=== PATIENT | male | born 1980 | race Caucasian/White ===

== ENCOUNTER 2022-02-17 21:00 | Inpatient (IN) | payer OTHER ==
[2022-02-17] MEDS ORDERED: SODIUM CHLORIDE 0.9% 1,000 ML IV STA (21:14)
[2022-02-17] MEDS ORDERED: DILTIAZEM DRIP BOLUS FROM BAG 1 MG SOLN IV ONE (21:14)
[2022-02-17 21:35] LABS: ALT 32 U/L (4-49); AST 26 U/L (17-59); African American GFR (CKD) >90 (>60 ml/min/1.73 sqM); Albumin 4.5 g/dL (3.5-5.0); Alkaline Phosphatase 76 U/L (38-126); Anion Gap 9 mmol/L; Blood Urea Nitrogen 14 mg/dL (9-20); Calcium 9.3 mg/dL (8.4-10.2); Carbon Dioxide 22 mmol/L (22-30); Chloride 106 mmol/L (98-107); Glucose 175 mg/dL (74-99); Magnesium 1.9 mg/dL (1.6-2.3); Non-African American GFR(CKD) >90 (>60 ml/min/1.73 sqM); Potassium 3.7 mmol/L (3.5-5.1); Sodium 137 mmol/L (137-145); Total Bilirubin 0.4 mg/dL (0.2-1.3); Total Protein 7.5 g/dL (6.3-8.2)
[2022-02-17] MEDS: DILTIAZEM 125 MG in SODIUM CHLORIDE 0.9% 100 ML IV SCH (21:38)
--- NOTE | 2022-02-17 21:38 | XR ---
EXAMINATION TYPE: XR chest 2V DATE OF EXAM: 02/17/2022 9:29 PM COMPARISON: None TECHNIQUE: XR chest 2V Frontal and lateral views of the chest. CLINICAL INDICATION:Male, 42 years old with history of dysrhythmia; FINDINGS: Lungs/Pleura: There is no evidence of pleural effusion, focal consolidation, or pneumothorax. Pulmonary vascularity: Unremarkable. Heart/mediastinum: Cardiomediastinal silhouette is unremarkable. Musculoskeletal: No acute osseous pathology. IMPRESSION: No acute cardiopulmonary disease/process.
[2022-02-17 21:44] LABS: INR 0.9 (<1.2); Partial Thromboplastin Time 24.8 sec (22.0-30.0); Prothrombin Time 10.2 sec (9.0-12.0)
--- NOTE | 2022-02-17 21:52 | ED ---
General Adult HPI - General Chief complaint: Arrhythmia/Palpitations Stated complaint: Afib Time Seen by Provider: 02/17/22 21:02 Source: patient, RN notes reviewed, old records reviewed Mode of arrival: ambulatory Limitations: no limitations - History of Present Illness Initial comments: 42-year-old male presenting with palpitations. Patient was transported by paramedics found to be in A. fib with RVR. He has remote history of atrial fibrillation and had been medicated but has not required medication approximately 10 years. He reports chest discomfort without chest pain. No vomiting or diarrhea.. No illegal drugs. He states he has been eating and drinking well. No fever. No dyspnea. - Related Data Home Medications Medication Instructions Recorded Confirmed No Known Home Medications 02/17/22 02/17/22 Allergies Allergy/AdvReac Type Severity Reaction Status Date / Time No Known Allergies Allergy Verified 02/17/22 22:09 Review of Systems ROS Statement: Those systems with pertinent positive or pertinent negative responses have been documented in the HPI. ROS Other: All systems not noted in ROS Statement are negative. Past Medical History Past Medical History: Atrial Fibrillation History of Any Multi-Drug Resistant Organisms: None Reported Past Surgical History: No Surgical Hx Reported Past Psychological History: No Psychological Hx Reported Smoking Status: Never smoker Past Alcohol Use History: Occasional Past Drug Use History: None Reported General Exam Limitations: no limitations General appearance: alert, in no apparent distress Head exam: Present: atraumatic, normocephalic Eye exam: Present: normal appearance, PERRL ENT exam: Present: normal exam Neck exam: Present: normal inspection. Absent: tenderness, meningismus Respiratory exam: Present: normal lung sounds bilaterally. Absent: respiratory distress, wheezes Cardiovascular Exam: Present: tachycardia, irregular rhythm GI/Abdominal exam: Present: soft. Absent: distended, tenderness, guarding Extremities exam: Present: normal inspection, normal capillary refill. Absent: pedal edema Neurological exam: Present: alert, oriented X3, CN II-XII intact. Absent: motor sensory deficit Psychiatric exam: Present: normal affect, normal mood Skin exam: Present: warm, dry, intact. Absent: cyanosis, diaphoretic Course Vital Signs 02/17/22 02/17/22 02/17/22 21:06 21:12 21:36 Temperature 98.2 F Pulse Rate 177 H 165 H 141 H Pulse Rate [ 146 H [employer]her Plant [employer] ] Respiratory 18 16 16 Rate Blood Pressure 135/83 121/90 O2 Sat by Pulse 96 98 95 Oximetry 02/17/22 22:10 Temperature Pulse Rate 137 H Pulse Rate [ [employer] ] Respiratory 16 Rate Blood Pressure 117/84 O2 Sat by Pulse 95 Oximetry EKG Findings - EKG Comments: EKG Findings:: EKG: Ventricular defibrillation with RVR rate of 171, QRS duration 87, QTC 344, no ST segment elevation. Medical Decision Making - Medical Decision Making 42-year-old male with remote history of atrial fibrillation presenting in nature fibrillation with RVR. Rapid heart rate up to 190. He has no central chest pain. Laboratory studies are obtained which are unremarkable. Chest x-ray is negative for acute cardiopulmonary 5 days. Patient started on Cardizem and does have a down trending heart rate in the emergency department. He will be admitted for rate control. Cardiology has been placed on consult. I did discuss case with Nino arce for [facility] - Lab Data Result diagrams: 02/17/22 21:47 02/17/22 21:16 Lab Results 02/17/22 02/17/22 02/17/22 Range/Units 21:16 21:16 21:16 WBC (3.8-10.6) k/uL RBC (4.30-5.90) m/uL Hgb (13.0-17.5) gm/dL Hct (39.0-53.0) % MCV (80.0-100.0) fL MCH (25.0-35.0) pg MCHC (31.0-37.0) g/dL RDW (11.5-15.5) % Plt Count (150-450) k/uL MPV Neutrophils % % Lymphocytes % % Monocytes % % Eosinophils % % Basophils % % Neutrophils # (1.3-7.7) k/uL Lymphocytes # (1.0-4.8) k/uL Monocytes # (0-1.0) k/uL Eosinophils # (0-0.7) k/uL Basophils # (0-0.2) k/uL PT 10.2 (9.0-12.0) sec INR 0.9 (<1.2) APTT 24.8 (22.0-30.0) sec Sodium 137 (137-145) mmol/L Potassium 3.7 (3.5-5.1) mmol/L Chloride 106 (98-107) mmol/L Carbon Dioxide 22 (22-30) mmol/L Anion Gap 9 mmol/L BUN 14 (9-20) mg/dL Creatinine 0.96 (0.66-1.25) mg/dL Est GFR (CKD-EPI)AfAm >90 (>60 ml/min/1.73 sqM) Est GFR (CKD-EPI)NonAf >90 (>60 ml/min/1.73 sqM) Glucose 175 H (74-99) mg/dL Calcium 9.3 (8.4-10.2) mg/dL Magnesium 1.9 (1.6-2.3) mg/dL Total Bilirubin 0.4 (0.2-1.3) mg/dL AST 26 (17-59) U/L ALT 32 (4-49) U/L Alkaline Phosphatase 76 (38-126) U/L Troponin I <0.012 (0.000-0.034) ng/mL Total Protein 7.5 (6.3-8.2) g/dL Albumin 4.5 (3.5-5.0) g/dL TSH 2.760 (0.465-4.680) mIU/L 02/17/22 Range/Units 21:47 WBC 7.1 (3.8-10.6) k/uL RBC 5.24 (4.30-5.90) m/uL Hgb 15.1 (13.0-17.5) gm/dL Hct 46.0 (39.0-53.0) % MCV 87.9 (80.0-100.0) fL MCH 28.7 (25.0-35.0) pg MCHC 32.7 (31.0-37.0) g/dL RDW 11.7 (11.5-15.5) % Plt Count 222 (150-450) k/uL MPV 7.3 Neutrophils % 72 % Lymphocytes % 20 % Monocytes % 5 % Eosinophils % 2 % Basophils % 1 % Neutrophils # 5.1 (1.3-7.7) k/uL Lymphocytes # 1.4 (1.0-4.8) k/uL Monocytes # 0.4 (0-1.0) k/uL Eosinophils # 0.1 (0-0.7) k/uL Basophils # 0.0 (0-0.2) k/uL PT (9.0-12.0) sec INR (<1.2) APTT (22.0-30.0) sec Sodium (137-145) mmol/L Potassium (3.5-5.1) mmol/L Chloride (98-107) mmol/L Carbon Dioxide (22-30) mmol/L Anion Gap mmol/L BUN (9-20) mg/dL Creatinine (0.66-1.25) mg/dL Est GFR (CKD-EPI)AfAm (>60 ml/min/1.73 sqM) Est GFR (CKD-EPI)NonAf (>60 ml/min/1.73 sqM) Glucose (74-99) mg/dL Calcium (8.4-10.2) mg/dL Magnesium (1.6-2.3) mg/dL Total Bilirubin (0.2-1.3) mg/dL AST (17-59) U/L ALT (4-49) U/L Alkaline Phosphatase (38-126) U/L Troponin I (0.000-0.034) ng/mL Total Protein (6.3-8.2) g/dL Albumin (3.5-5.0) g/dL TSH (0.465-4.680) mIU/L Disposition Clinical Impression: Atrial fibrillation with RVR Disposition: ADMITTED IP TO THIS HOSP Condition: Stable Is patient prescribed a controlled substance at d/c from ED?: No Referrals: Lennie Contreras DO [Primary Care Provider] - 1-2 days Time of Disposition: 22:48
[2022-02-17 21:55] LABS: Basophils % (A) 1 %; Eosinophils # (A) 0.1 k/uL (0-0.7); Eosinophils % (A) 2 %; HGB 15.1 gm/dL (13.0-17.5); Lymphocytes # (A) 1.4 k/uL (1.0-4.8); Lymphocytes % (A) 20 %; MCH 28.7 pg (25.0-35.0); MCHC 32.7 g/dL (31.0-37.0); MCV 87.9 fL (80.0-100.0); Mean Platelet Volume 7.3; Monocytes # (A) 0.4 k/uL (0-1.0); Monocytes % (A) 5 %; Neutrophils # (A) 5.1 k/uL (1.3-7.7); Neutrophils % (A) 72 %; Platelet Count 222 k/uL (150-450); RBC 5.24 m/uL (4.30-5.90); RDW 11.7 % (11.5-15.5); WBC 7.1 k/uL (3.8-10.6)
[2022-02-17] MEDS ORDERED: NALOXONE 0.4 MG/ML 1 ML VIAL IV PRN (22:44)
[2022-02-18] MEDS: SODIUM CHLORIDE 0.9% 1,000 ML IV SCH ×2 (00:50→12:15)
[2022-02-18 06:14] LABS: Glucose,Whole Blood 103 mg/dL (75-99)
[2022-02-18] MEDS: METOPROLOL TARTRATE 25 MG TAB PO SCH ×2 (09:38→20:33)
[2022-02-18] MEDS ORDERED: HEPARIN SODIUM 1,000 UN/ML (10ML VL) IV ONE (09:55)
[2022-02-18] MEDS ORDERED: HEPARIN SODIUM 1,000 UN/ML (10ML VL) IV PRN (09:55)
[2022-02-18 10:47] LABS: Basophils % (A) 0 %; Eosinophils % (A) 1 %; HCT 48.8 % (39.0-53.0); HGB 16.5 gm/dL (13.0-17.5); Lymphocytes # (A) 1.6 k/uL (1.0-4.8); Lymphocytes % (A) 27 %; MCH 29.9 pg (25.0-35.0); MCHC 33.8 g/dL (31.0-37.0); MCV 88.6 fL (80.0-100.0); Mean Platelet Volume 7.5; Monocytes # (A) 0.3 k/uL (0-1.0); Monocytes % (A) 4 %; Neutrophils # (A) 3.8 k/uL (1.3-7.7); Neutrophils % (A) 66 %; Platelet Count 259 k/uL (150-450); RDW 12.7 % (11.5-15.5); WBC 5.8 k/uL (3.8-10.6)
[2022-02-18 10:54] LABS: Partial Thromboplastin Time 25.4 sec (22.0-30.0); Prothrombin Time 10.4 sec (9.0-12.0)
--- NOTE | 2022-02-18 11:32 | P.HPIM ---
History of Present Illness H&P Date: 02/18/22 This is a pleasant 42-year-old male who presents to hospitals complains of heart palpitations that has started about a week ago. Patient is a medical history significant for atrial fibrillation about 10 years ago has spontaneously converted and states he is maintained sinus rhythm since. He was originally on metoprolol however was weaned off outpatient. EKG on presentation shows atrial fibrillation with rapid ventricular rate heart rate in 171 on the QT interval 344. He was started on Cardizem drip and heparin drip in the emergency center and was evaluated by cardiology today who started him back on metoprolol. He will slowly be weaned off the Cardizem drip today. He is still in atrial fibrillation maintaining controlled rate in the 90s, blood pressure 111/78, he is afebrile, 97% room air. Echocardiogram is currently pending. Patient currently denies any shortness of breath, no dizziness or lightheadedness. He does complain of mild dry intermittent cough. He did have a positive COVID test out patient 2 and a half weeks ago. 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 Carroll who he sees out in [place]. States that he had a routine physical recently that was unremarkable. Chest xray is negative for acute cardiopulmonary disease. REVIEW OF SYSTEMS: CONSTITUTIONAL: No fever, no malaise, no fatigue. HEENT: No recent visual problems or hearing problems. Denied any sore throat. CARDIOVASCULAR: No chest pain, orthopnea, PND, no palpitations, no syncope. PULMONARY: No shortness of breath, no cough, no hemoptysis. GASTROINTESTINAL: No diarrhea, no nausea, no vomiting, no abdominal pain. NEUROLOGICAL: No headaches, no weakness, no numbness. HEMATOLOGICAL: Denies any bleeding or petechiae. GENITOURINARY: Denies any burning micturition, frequency, or urgency. MUSCULOSKELETAL/RHEUMATOLOGICAL: Denies any joint pain, swelling, or any muscle pain. ENDOCRINE: Denies any polyuria or polydipsia. The rest of the 14-point review of systems is negative. PHYSICAL EXAMINATION: GENERAL: The patient is alert and oriented x3, not in any acute distress. Well developed, well nourished. HEENT: Pupils are round and equally reacting to light. EOMI. No scleral icterus. No conjunctival pallor. Normocephalic, atraumatic. No pharyngeal erythema. No thyromegaly. CARDIOVASCULAR: S1 and S2 present. No murmurs, rubs, or gallops. PULMONARY: Chest is clear to auscultation, no wheezing or crackles. ABDOMEN: Soft, nontender, nondistended, normoactive bowel sounds. No palpable organomegaly. MUSCULOSKELETAL: No joint swelling or deformity. EXTREMITIES: No cyanosis, clubbing, or pedal edema. NEUROLOGICAL: Gross neurological examination did not reveal any focal deficits. SKIN: No rashes. Assessment and plan Assessment Atrial fibrillation with rapid ventricular rate started on cardizem and heparin gtt History of atrial fibrillation most likely paroxysmal states that he has been in normal sinus rhythm outpatient for the last 10 years Recent COVID-19 infection without evidence for pneumonia Hyperglycemia on admission without history of diabetes mellitus GI prophylaxis DVT prophylaxis Full Code Plan 2-D echo cardiogram has been taken and pending reports Cardiology consultation Continue on IV heparin On IV cardizem, has been started on oral metoprolol today The impression and plan of care has been dictated by Cony Chahal Nurse Practitioner as directed. Dr. Alber MD I have performed a history and physical examination and medical decision making of this patient, discussed the same with the dictator, and agree with the dictators assessment and plan as written, documented as a scribe. Based on total visit time, I have performed more than 50% of this visit. Past Medical History Past Medical History: Atrial Fibrillation History of Any Multi-Drug Resistant Organisms: None Reported Past Surgical History: No Surgical Hx Reported Past Anesthesia/Blood Transfusion Reactions: No Reported Reaction Past Psychological History: No Psychological Hx Reported Smoking Status: Never smoker Past Alcohol Use History: Occasional Past Drug Use History: None Reported Medications and Allergies Home Medications Medication Instructions Recorded Confirmed Type No Known Home Medications 02/17/22 02/17/22 History Allergies Allergy/AdvReac Type Severity Reaction Status Date / Time No Known Allergies Allergy Verified 02/17/22 22:09 Physical Exam Vitals: Vital Signs Temp Pulse Pulse Resp BP BP Pulse Ox 02/18/22 09:35 156 H 02/18/22 09:29 97.7 F 96 16 111/78 97 02/18/22 03:58 97.6 F 88 16 119/82 96 02/18/22 02:00 110 H 02/18/22 00:16 98.6 F 86 16 118/86 97 02/18/22 00:00 98.6 F 120 H 18 118/86 97 02/17/22 23:16 126 H 16 104/81 95 02/17/22 22:10 137 H 16 117/84 95 02/17/22 21:36 141 H 16 121/90 95 02/17/22 21:12 165 H 146 H 16 98 02/17/22 21:06 98.2 F 177 H 18 135/83 96 Intake and Output 02/17/22 02/18/22 02/18/22 22:59 06:59 14:59 Intake Total 640 Balance 640 Intake: Intake, IV Titration 640 Amount Diltiazem 125 mg In 40 Sodium Chloride 0.9% 100 ml @ 5 MG/HR 5 mls/hr IV .Q24H [facility] Rx#:[id number] Sodium Chloride 0.9% 1, 600 000 ml @ 75 mls/hr IV . [id number] [facility] Rx#:[id number] Oral 0 Other: # Voids 1 Weight 97.522 kg 97.522 kg Results CBC & Chem 7: 02/18/22 10:03 02/17/22 21:16 Labs: Abnormal Lab Results - Last 24 Hours (Table) 02/17/22 02/18/22 Range/Units 21:16 06:13 Glucose 175 H (74-99) mg/dL POC Glucose (mg/dL) 103 H (75-99) mg/dL Thrombosis Risk Factor Assmnt - Choose All That Apply Each Factor Represents 1 point: Age 41-60 years Other Risk Factors: No Other congenital or acquired thrombophilia - If yes, enter type in comment: No Thrombosis Risk Factor Assessment Total Risk Factor Score: 1 Thrombosis Risk Factor Assessment Level: Low Risk Assessment and Plan Time with Patient: Less than 30
--- NOTE | 2022-02-18 12:52 | P.CRDCN ---
History of Present Illness History of present illness: HISTORY OF PRESENT ILLNESS: This is a 42-year-old male with a past medical history significant for paroxysmal atrial fibrillation. Patient follows with a Dr. Carroll out of [place]. We have been asked to see the patient in consultation for atrial fibrillation. Patient examined at the bedside. Patient reports yesterday he was sitting on the couch relaxing when he began to have palpitations. He also reports feeling short of breath. The patient presented to emergency room for further evaluation. The patient was found to be in A. fib with RVR. The patient states he was first diagnosed with atrial fibrillation about 10 years ago. He states he was on metoprolol when he was first diagnosed but has not been on it in many years. He states he has not had any further episodes of atrial fibrillation since first being diagnosed approximately 10 years ago to his knowledge. He denies being on any anticoagulation. He states when he was originally diagnosed with atrial fibrillation he was supposed to have a cardioversion performed. He states however the did a DIEGO first and after his DIEGO he spontaneously converted to sinus mechanism. The patient remains in atrial fibrillation this morning with a heart rate between 90-110. * EKG reveals A. fib with RVR * Chest xray no acute process. * Laboratory data: W BC 5.8. Hemoglobin 5.5. Platelet count 259. Sodium 137. Potassium 3.7. BUN 14. Creatinine 0.96. Troponin negative 1. TSH 2.760. * Current home cardiac medications include none REVIEW OF SYSTEMS: At the time of my exam: CONSTITUTIONAL: Denies fever or chills. HEENT: Denies blurred vision, vision changes, or eye pain. Denies hemoptysis CARDIOVASCULAR: Denies chest pain. Denies orthopnea. Denies PND. Denies pal pitations RESPIRATORY: Denies shortness of breath. GASTROINTESTINAL: Denies abdominal pain. Denies nausea or vomiting. HEMATOLOGIC: Denies bleeding disorders. GENITOURINARY: Denies any blood in urine. SKIN: Denies pruitis. Denies rash. PHYSICAL EXAM: VITAL SIGNS: Reviewed. GENERAL: Well-developed in no acute distress. HEENT: Head is normocephalic. Pupils are equal, round. Sclerae anicteric. Mucous membranes of the mouth are moist. Neck supple. No JVD or thyromegaly LUNGS: Respirations even and unlabored. Lungs essentially clear to auscultation bilaterally. HEART: Irregular rate and rhythm. S1 and S2 heard. ABDOMEN: Soft. Nondistended. Nontender. EXTREMITIES: Normal range of motion. No clubbing or cyanosis. Peripheral pulses intact. No lower extremity edema NEUROLOGIC: Awake and alert. Oriented x 3. ASSESSMENT: Palpitations Paroxysmal atrial fibrillation with RVR PLAN: Obtain 2D echo to assess cardiac structure and function Begin metoprolol 25mg BID Continue Cardizem drip. Wean off if heart rate will tolerate Begin IV heparin Continue telemetry monitoring Further recommendations pending patient course Nurse practitioner note has been reviewed by physician. Signing provider agrees with the documented findings, assessment, and plan of care. Past Medical History Past Medical History: Atrial Fibrillation History of Any Multi-Drug Resistant Organisms: None Reported Past Surgical History: No Surgical Hx Reported Past Anesthesia/Blood Transfusion Reactions: No Reported Reaction Past Psychological History: No Psychological Hx Reported Smoking Status: Never smoker Past Alcohol Use History: Occasional Past Drug Use History: None Reported Medications and Allergies Home Medications Medication Instructions Recorded Confirmed Type No Known Home Medications 02/17/22 02/17/22 History Allergies Allergy/AdvReac Type Severity Reaction Status Date / Time No Known Allergies Allergy Verified 02/17/22 22:09 Physical Exam Vitals: Vital Signs Temp Pulse Pulse Resp BP BP Pulse Ox 02/18/22 03:58 97.6 F 88 16 119/82 96 02/18/22 02:00 110 H 02/18/22 00:16 98.6 F 86 16 118/86 97 02/18/22 00:00 98.6 F 120 H 18 118/86 97 02/17/22 23:16 126 H 16 104/81 95 02/17/22 22:10 137 H 16 117/84 95 02/17/22 21:36 141 H 16 121/90 95 02/17/22 21:12 165 H 146 H 16 98 02/17/22 21:06 98.2 F 177 H 18 135/83 96 Intake and Output 02/17/22 02/18/22 02/18/22 22:59 06:59 14:59 Intake Total 640 Balance 640 Intake: Intake, IV Titration 640 Amount Diltiazem 125 mg In 40 Sodium Chloride 0.9% 100 ml @ 5 MG/HR 5 mls/hr IV .Q24H [facility] Rx#:[id number] Sodium Chloride 0.9% 1, 600 000 ml @ 75 mls/hr IV . [id number] [facility] Rx#:[id number] Oral 0 Other: # Voids 1 Weight 97.522 kg 97.522 kg Results 02/18/22 10:03 02/17/22 21:16 Cardiac Enzymes 02/17/22 02/17/22 Range/Units 21:16 21:16 AST 26 (17-59) U/L Troponin I <0.012 (0.000-0.034) ng/mL Coagulation 02/17/22 Range/Units 21:16 PT 10.2 (9.0-12.0) sec APTT 24.8 (22.0-30.0) sec CBC 02/17/22 Range/Units 21:47 WBC 7.1 (3.8-10.6) k/uL RBC 5.24 (4.30-5.90) m/uL Hgb 15.1 (13.0-17.5) gm/dL Hct 46.0 (39.0-53.0) % Plt Count 222 (150-450) k/uL Comprehensive Metabolic Panel 02/17/22 Range/Units 21:16 Sodium 137 (137-145) mmol/L Potassium 3.7 (3.5-5.1) mmol/L Chloride 106 (98-107) mmol/L Carbon Dioxide 22 (22-30) mmol/L BUN 14 (9-20) mg/dL Creatinine 0.96 (0.66-1.25) mg/dL Glucose 175 H (74-99) mg/dL Calcium 9.3 (8.4-10.2) mg/dL AST 26 (17-59) U/L ALT 32 (4-49) U/L Alkaline Phosphatase 76 (38-126) U/L Total Protein 7.5 (6.3-8.2) g/dL Albumin 4.5 (3.5-5.0) g/dL Current Medications Generic Name Dose Route Start Last Admin Trade Name Freq PRN Reason Stop Dose Admin Diltiazem HCl 125 mg/ Sodium 125 mls @ 5 mls/hr 02/17/22 21:15 02/17/22 21:38 Chloride IV 5 mg/hr .Q24H [facility] 5 mls/hr Administration 5 MG/HR Sodium Chloride 1,000 mls @ 75 mls/hr 02/17/22 22:45 02/18/22 00:50 Saline 0.9% IV Not Given .[id number] [facility] Naloxone HCl 0.2 mg 02/17/22 22:44 Naloxone 0.4 Mg/Ml 1 Ml Vial IV Q2M PRN Opioid Reversal Intake and Output 02/17/22 02/18/22 02/18/22 22:59 06:59 14:59 Intake Total 640 Balance 640 Intake: Intake, IV Titration 640 Amount Diltiazem 125 mg In 40 Sodium Chloride 0.9% 100 ml @ 5 MG/HR 5 mls/hr IV .Q24H [facility] Rx#:[id number] Sodium Chloride 0.9% 1, 600 000 ml @ 75 mls/hr IV . [id number] [facility] Rx#:[id number] Oral 0 Other: # Voids 1 Weight 97.522 kg 97.522 kg 02/17/22 21:47 02/17/22 21:16
[2022-02-18] MEDS: DILTIAZEM 125 MG in SODIUM CHLORIDE 0.9% 100 ML IV SCH (13:04)
[2022-02-18] MEDS: HEPARIN SOD,PORK IN 0.45% NACL 25,000 UNIT in 0.45% NACL 1 250ML.BAG IV SCH (13:05)
[2022-02-18] MEDS: FAMOTIDINE 20 MG TAB PO SCH ×2 (13:05→20:33)
--- NOTE | 2022-02-18 18:30 | CA ---
Transthoracic Echo Report Name: Elliot Vasquez Age: 42 Gender: M : 1980 Exam Date: 02/18/2022 10:05 Exam Location: [facility] Ht (in): 71 Wt (lb): 215 Ordering Physician: Florence Woods Attending/Referring Phys: [id number], Chuck Coal Screener Procedure CPT: Indications: LV function Cardiac Hx: Hx of afib Technical Quality: Good Contrast 1: Total Dose (mL): Contrast 2: Total Dose (mL): MEASUREMENTS (Male / Female) Normal Values 2D ECHO LV Diastolic Diameter PLAX 3.8 cm 4.2 - 5.9 / 3.9 - 5.3 cm LV Systolic Diameter PLAX 2.8 cm IVS Diastolic Thickness 1.2 cm 0.6 - 1.0 / 0.6 - 0.9 cm LVPW Diastolic Thickness 1.2 cm 0.6 - 1.0 / 0.6 - 0.9 cm LV Relative Wall Thickness 0.6 LA Volume 49.5 cm??? 18 - 58 / 22 - 52 cm??? M-MODE Aortic Root Diameter MM 3.3 cm LA Systolic Diameter MM 3.3 cm LA Ao Ratio MM 1.0 AV Cusp Separation MM 2.3 cm DOPPLER AV Peak Velocity 107.2 cm/s AV Peak Gradient 4.6 mmHg MR Peak Velocity 84.3 cm/s MR Peak Gradient 2.8 mmHg TR Peak Velocity 224.1 cm/s TR Peak Gradient 20.1 mmHg Right Ventricular Systolic Press 25.1 mmHg FINDINGS Left Ventricle Mildly increased septal wall thickness. Left ventricular ejection fraction is estimated at 55-60 %. Left ventricular cavity size normal. Right Ventricle The right ventricle is normal in size and function. Right Atrium The right atrium is normal in size. Left Atrium The left atrium is normal in size. Mitral Valve Structurally normal mitral valve without significant stenosis or prolapse. There is no mitral regurgitation. Aortic Valve Structurally normal aortic valve without significant sclerosis or stenosis. There is no aortic regurgitation. Tricuspid Valve Structurally normal tricuspid valve without significant stenosis. Pulmonary artery systolic pressure is normal. Trace tricuspid regurgitation. Pulmonic Valve Structurally normal pulmonic valve without significant stenosis. There is no pulmonic regurgitation. Pericardium Normal pericardium without effusion. Aorta Normal aortic root dimension. CONCLUSIONS Normal LV size and systolic function with mild concentric LVH. No significant abnormality on the Doppler exam. No pericardial effusion Previewed by: Dr. Mely Tello MD (Electronically Signed) Final Date: 18 February 2022 18:29
[2022-02-19] MEDS: HEPARIN SOD,PORK IN 0.45% NACL 25,000 UNIT in 0.45% NACL 1 250ML.BAG IV SCH (06:31)
[2022-02-19 08:07] LABS: Basophils % (A) 0 %; Eosinophils # (A) 0.1 k/uL (0-0.7); Eosinophils % (A) 1 %; HCT 50.5 % (39.0-53.0); HGB 17.3 gm/dL (13.0-17.5); Lymphocytes # (A) 1.9 k/uL (1.0-4.8); Lymphocytes % (A) 32 %; MCH 30.5 pg (25.0-35.0); MCHC 34.3 g/dL (31.0-37.0); Mean Platelet Volume 7.2; Monocytes # (A) 0.3 k/uL (0-1.0); Monocytes % (A) 4 %; Neutrophils # (A) 3.6 k/uL (1.3-7.7); Neutrophils % (A) 61 %; Platelet Count 257 k/uL (150-450); RBC 5.68 m/uL (4.30-5.90); RDW 12.5 % (11.5-15.5)
[2022-02-19 08:10] LABS: Partial Thromboplastin Time 42.9 sec (22.0-30.0); Prothrombin Time 10.6 sec (9.0-12.0)
[2022-02-19] MEDS: SODIUM CHLORIDE 0.9% 1,000 ML IV SCH (08:57)
[2022-02-19] MEDS: METOPROLOL TARTRATE 25 MG TAB PO SCH (08:57)
[2022-02-19] MEDS: FAMOTIDINE 20 MG TAB PO SCH (08:57)
[2022-02-19 10:51] VITALS: RESP 16
[2022-02-19 12:28] VITALS: BP 108/70; PULSE 82; TEMP 97.6
--- NOTE | 2022-02-19 13:49 | P.PN ---
Subjective Progress Note Date: 02/19/22 HISTORY OF PRESENT ILLNESS: This is a 42-year-old male with a past medical history significant for paroxysmal atrial fibrillation. Patient follows with a Dr. Carroll out of [place]. We have been asked to see the patient in consultation for atrial fibrillation. Patient examined at the bedside. Patient reports yesterday he was sitting on the couch relaxing when he began to have palpitations. He also reports feeling short of breath. The patient presented to emergency room for further evaluation. The patient was found to be in A. fib with RVR. The patient states he was first diagnosed with atrial fibrillation about 10 years ago. He states he was on metoprolol when he was first diagnosed but has not been on it in many years. He states he has not had any further episodes of atrial fibrillation since first being diagnosed approximately 10 years ago to his knowledge. He de nies being on any anticoagulation. He states when he was originally diagnosed with atrial fibrillation he was supposed to have a cardioversion performed. He states however the did a DIEGO first and after his DIEGO he spontaneously converted to sinus mechanism. The patient remains in atrial fibrillation this morning with a heart rate between 90-110. * EKG reveals A. fib with RVR * Chest xray no acute process. * Laboratory data: W BC 5.8. Hemoglobin 5.5. Platelet count 259. Sodium 137. Potassium 3.7. BUN 14. Creatinine 0.96. Troponin negative 1. TSH 2.760. * Current home cardiac medications include none 02/19/2022 Patient examined this morning at the bedside. Patient has converted to sinus mechanism. Denies chest pain or SOB. Vital signs stable. Echocardiogram perf ormed revealing ejection fraction 55-60% PHYSICAL EXAM: VITAL SIGNS: Reviewed. GENERAL: Well-developed in no acute distress. HEENT: Head is normocephalic. Pupils are equal, round. Sclerae anicteric. Mucous membranes of the mouth are moist. Neck supple. No JVD or thyromegaly LUNGS: Respirations even and unlabored. Lungs essentially clear to auscultation bilaterally. HEART: Irregular rate and rhythm. S1 and S2 heard. ABDOMEN: Soft. Nondistended. Nontender. EXTREMITIES: Normal range of motion. No clubbing or cyanosis. Peripheral pulses intact. No lower extremity edema NEUROLOGIC: Awake and alert. Oriented x 3. ASSESSMENT: Palpitations Paroxysmal atrial fibrillation with RVR PLAN: Discontinue IV Cardizem Discontinue IV Heparin Continue metoprolol Patient is stable for discharge from a cardiac standpoint Nurse practitioner note has been reviewed by physician. Signing provider agrees with the documented findings, assessment, and plan of care. Objective - Vital Signs Vital signs: Vital Signs Temp 97.6 F 02/19/22 12:10 Pulse 82 02/19/22 12:10 Resp 16 02/19/22 12:10 BP 108/70 02/19/22 12:10 Pulse Ox 98 02/19/22 12:10 FiO2 Intake & Output 02/18/22 02/19/22 02/19/22 18:59 06:59 18:59 Intake Total 2146.834 855.471 7360.387 Output Total 300 Balance 2146.834 524.590 9622.387 Intake: IV 600 600 Sodium Chloride 0.9% 1, 600 600 000 ml @ 75 mls/hr IV . [id number] [facility] Rx#:[id number] Intake, IV Titration 126.834 161.144 144.387 Amount Diltiazem 125 mg In 77.167 89.667 Sodium Chloride 0.9% 100 ml @ 5 MG/HR 5 mls/hr IV .Q24H [facility] Rx#:[id number] Heparin Sod,Pork in 0.45% 49.667 161.144 54.72 NaCl 25,000 unit In 0.45 % NaCl 1 250ml.bag @ 10. 254 UNITS/KG/HR 10 mls/hr IV .Q24H [facility] Rx#: [id number] Oral 1420 940 Output: Urine 300 Other: # Voids 2 - Labs CBC & Chem 7: 02/19/22 07:13 02/17/22 21:16 Labs: Abnormal Lab Results - Last 24 Hours (Table) 02/18/22 02/18/22 02/19/22 Range/Units 15:34 17:35 00:00 APTT 40.0 H 34.6 H 47.3 H (22.0-30.0) sec 02/19/22 Range/Units 07:13 APTT 42.9 H (22.0-30.0) sec
--- NOTE | 2022-02-20 15:45 | P.DS ---
Providers Date of admission: 02/17/22 22:44 Attending physician: Loly Recinos Consults: 02/17/22 22:44 Consult Physician Routine Consulting Provider: Richard Cintron Consult Reason/Comments: A. fib with RVR Do you want consulting provider notified?: Yes Primary care physician: Lennie De Leon Hospital Course: Final Diagnosis Atrial fibrillation with rapid ventricular rate History of atrial fibrillation most likely paroxysmal Recent COVID-19 infection without evidence for pneumonia Hyperglycemia on admission without history of diabetes mellitus Full code Discharge disposition Patient is stable for discharge he has been started on oral metoprolol 25 mg twice a day will follow-up with cardiology in 1 week. Follow up with PCP in 1-2 days. Hospital course This is a pleasant 42-year-old male with history of paroxysmal atrial fibrillation. He is a patient of Dr. Carroll out in [place] and also follows with Dr. De Leon for primary care. He presents to the hospital with complaints of palpitations while sitting on the couch as well as shortness of breath. He is a one day history of this. He presents to the emergency room for evaluation and was found to be in atrial fibrillation with rapid ventricular rate. He has a history of atrial fibrillation about 10 years, that time was put on metoprolol but has since been weaned off of that. He has not had any further episodes of atrial fibrillation since his diagnosis approximately 10 years ago. His first diagnosis was precipitated by an evening of drinking alcohol. He had spontaneously converted during a transesophageal echocardiogram and the planned cardioversion was canceled. Chest x-ray on admission shows no acute process, lab on admission shows a white count of 5.8, hemoglobin 16.5, platelet count 259, he did have an elevated blood glucose at 175 on admission however his hemoglobin A1c was 5.6. Troponin negative, proBNP was not checked. TSH is 2.760. Patient was started on Cardizem drip and IV heparin drip. He underwent echocardiogram which reveals an ejection fraction of 55-60%. No significant abnormality and no pericardial effusion. He has since converted spontaneously to sinus rhythm with a heart rate of 82, afebrile, blood pressure 108/70 and 98% room air. Risk score has been calculated and he will not discharge on oral anticoagulation therapy. 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 Carroll one week post discharge. 02/19/2022 Patient is evaluated today, he has been ambulating without difficulty. No chest pain, no shortness of breath. No palpitations have been follow-up. He has been maintained in sinus mechanism overnight. He has been cleared by cardiology for discharge today and oral metoprolol 25 mg twice a day. Lungs are clear, S1-S2 auscultated, abdomen is soft and nontender, focal neurological exam is negative. Labs today showing white count 6.0, hemoglobin 17.3. Blood pressure 108/70. Please see medication reconciliation for a list of current medication. Thank you for allowing us to participate in the care of this patient. The impression and plan of care has been dictated by Cony Chahal Nurse Practitioner as directed. Dr. Alber MD I have performed a history and physical examination and medical decision making of this patient, discussed the same with the dictator, and agree with the dictators assessment and plan as written, documented as a scribe. Based on total visit time, I have performed more than 50% of this visit. Patient Condition at Discharge: Stable Plan - Discharge Summary Discharge Rx Participant: No New Discharge Prescriptions: New Metoprolol Tartrate [Lopressor] 25 mg PO BID #60 tab Discharge Medication List Metoprolol Tartrate [Lopressor] 25 mg PO BID #60 tab 02/19/22 [Rx] Follow up Appointment(s)/Referral(s): Lennie De Leon DO [Primary Care Provider] - 1-2 days Patient Instructions/Handouts: A-fib (Atrial Fibrillation) (ED) Activity/Diet/Wound Care/Special Instructions: Follow up with cardiology in 1-2 weeks. Discharge Disposition: HOME SELF-CARE
== END 2022-02-19 13:40 | disposition home or self-care (01) | DRG 310 ==
LOC: EC 21:00 → 3SCARD 22:44
PROVIDERS: ADMIT Internal Medicine; ATTEND Internal Medicine
PROC: B246ZZ4 Ultrasonography of Right and Left Heart, Transesophageal (ICD-10-PCS; principal; 2022-02-17)
DX: I48.0 Paroxysmal atrial fibrillation (principal); R73.9 Hyperglycemia, unspecified; I07.1 Rheumatic tricuspid insufficiency; R00.2 Palpitations; Z86.16 Personal history of COVID-19
CPT/HCPCS: 36415; 71046; 80053; 83036; 83735; 84443; 84484; 85025; 85610; 85730; 93005; 93306; 96365; 96366; 96375; 99285